=== PATIENT | female | born 1960 | race American Indian/Alaskan Native ===

== ENCOUNTER 2017-03-25 04:40 | Emergency (ER) | payer MEDICARE ==
[~2017-03-25] VITALS: Ht 152.4 cm; Wt 67.1 kg
[2017-03-25 04:47] VITALS: BP 120/80
[2017-03-25] MEDS ORDERED: HYDROcodone/APAP 5/325 TABLET ONE (05:05)
[2017-03-25] MEDS ORDERED: GABA300C10 PO (05:12)
[2017-03-25] MEDS ORDERED: NIFE60TA15 PO (05:12)
[2017-03-25] MEDS ORDERED: DOXE150C PO (05:12)
[2017-03-25] MEDS ORDERED: HYDROcodone/APAP 5/325 TABLET PO ONE (05:30)
== END 2017-03-25 05:29 | disposition home or self-care (01) ==
LOC: ED 05:18
DX: K08.89 Other specified disorders of teeth and supporting structures (principal); M79.7 Fibromyalgia; M06.9 Rheumatoid arthritis, unspecified; I73.00 Raynaud's syndrome without gangrene
CPT/HCPCS: 99283

== ENCOUNTER 2018-08-05 12:07 | Emergency (ER) | payer MEDICARE ==
[~2018-08-05] VITALS: Ht 152.4 cm; Wt 65.5 kg
[~2018-08-05 12:07] MED LIST: DOXE150C PO; GABA300C10 PO; NIFE60TA15 PO
[2018-08-05 12:12] VITALS: BP 127/79
[2018-08-05] MEDS ORDERED: HYDR-3245 PO (12:30)
[2018-08-05] MEDS ORDERED: VIT D PO (12:30)
--- NOTE | 2018-08-05 12:37 | NUR ---
Patient/Caregiver given discharge instructions and they have confirmed that they understand the instructions. Patient ambulatory with steady gait.
== END 2018-08-05 12:38 | disposition home or self-care (01) ==
LOC: ED 12:30
DX: B02.33 Zoster keratitis (principal); Z90.49 Acquired absence of other specified parts of digestive tract; Z90.710 Acquired absence of both cervix and uterus; F17.200 Nicotine dependence, unspecified, uncomplicated
CPT/HCPCS: 99283

== ENCOUNTER 2020-09-30 20:40 | Emergency (ER) | payer MEDICARE, OTHER ==
[~2020-09-30] VITALS: Ht 152.4 cm; Wt 61.6 kg
[~2020-09-30 20:40] MED LIST changes: +HYDR1TAB53 PO; +NIFE-6 PO; -NIFE60TA15 PO; +VIT D PO
[2020-09-30] MEDS ORDERED: NALOXONE 0.4 MG/ML, 1ML ONE ×2 (20:46→20:51)
--- NOTE | 2020-09-30 20:48 | NUR ---
pt given .4 narcan
[2020-09-30] MEDS ORDERED: PLEASE ENTER HEIGHT AND WEIGHT MC SCH (20:56)
[2020-09-30] MEDS ORDERED: NALOXONE 0.4 MG/ML, 1ML IVPush PRN (21:00)
[2020-09-30] MEDS ORDERED: SODIUM CHLORIDE 0.9% 1,000ML IVBOLUS ONE (21:00)
[2020-09-30] MEDS ORDERED: ONDANSETRON 2MG/ML, 2ML IVPush ONE (21:00)
[2020-09-30] MEDS ORDERED: ONDANSETRON 2MG/ML, 2ML ONE (21:04)
[2020-09-30 21:09] LABS: BASOPHILS % (AUTO) 1 % (0-1); EOSINOPHILS % (AUTO) 0 % (1-7); LYMPHOCYTES % (AUTO) 59 % (22-44); MEAN CORPUSCULAR HEMOGLOBIN 32.8 pg (27.0-34.8); MEAN PLATELET VOLUME 9.9 fL (7.4-10.4); MONOCYTES % (AUTO) 6 % (2-9); NEUTROPHILS % (AUTO) 35 % (42-75); PLATELET COUNT 351 x10^3/uL (130-400); RED BLOOD COUNT 4.17 x10^6/uL (3.82-5.3); RED CELL DISTRIBUTION WIDTH 14.2 % (9.6-15.2)
[2020-09-30 21:13] VITALS: BP 131/57
--- NOTE | 2020-09-30 21:13 | NUR ---
PT REQ TO LEAVE AMA AT THIS TIME STS HER BOYFRIEND IS ON COMFORT CARE UPSTAIRS AND SHE NEEDS TO BE WITH HIM. ERP UPDATED WILL BE IN TO DISCUSS WITH PT
[2020-09-30 21:19] LABS: ALBUMIN 3.9 g/dL (3.4-5.0); ANION GAP 14 mmol/L (5-15); CALCIUM 8.6 mg/dL (8.5-10.1); CHLORIDE 106 mmol/L (98-107)
[2020-09-30 21:22] LABS: ALANINE AMINOTRANSFERASE 24 U/L (12-78); ALKALINE PHOSPHATASE 111 U/L (45-117); BILIRUBIN,TOTAL 0.4 mg/dL (0.2-1.0); CREATININE 1.39 mg/dL (0.55-1.02); TOTAL PROTEIN 7.6 g/dL (6.4-8.2)
[2020-09-30 21:58] LABS: MD SCAN
== END 2020-09-30 22:49 | disposition left against medical advice (07) ==
LOC: ED 21:10
DX: T40.2X1A Poisoning by other opioids, accidental (unintentional), initial encounter (principal); R11.10 Vomiting, unspecified; R00.0 Tachycardia, unspecified; F17.200 Nicotine dependence, unspecified, uncomplicated; Z90.89 Acquired absence of other organs; Z90.49 Acquired absence of other specified parts of digestive tract; Z90.710 Acquired absence of both cervix and uterus
CPT/HCPCS: 36415; 80053; 80299; 80320; 80329; 82962; 85025; 93005; 96361; 96374; 96375; 99284; J2310; J2405; J7030; G0480